=== PATIENT | female | born 1945 | race Hispanic/Latino ===

== ENCOUNTER 2024-11-11 19:18 | Emergency (ER) | payer SELFPAY ==
[~2024-11-11] VITALS: Ht 165.1 cm; Wt 68.0 kg
[2024-11-11] MEDS: ONDANSETRON HCL 4 MG ORAL DISINTEGRATING TAB PO ONE (22:43)
[2024-11-11] MEDS: HYDROCODONE/APAP 7.5MG-325MG 1 EA TAB PO ONE (22:43)
[2024-11-11] MEDS ORDERED: HYDROCODON-ACE1 EA12 PEG (23:04)
[2024-11-11] MEDS ORDERED: ONDANSETRON ODT4 MG SL (23:04)
[2024-11-11] MEDS ORDERED: HYDROCODON-ACE1 EA12 PO (23:26)
[2024-11-11 23:35] VITALS: PULSE 86; RESP 17; TEMP 98.2; O2SAT 100
== END 2024-11-11 23:48 | disposition home or self-care (01) ==
LOC: ER 22:09
DX: S42.212A Unspecified displaced fracture of surgical neck of left humerus, initial encounter for closed fracture (principal); W18.39XA Other fall on same level, initial encounter; Y92.89 Other specified places as the place of occurrence of the external cause; I10 Essential (primary) hypertension; E11.9 Type 2 diabetes mellitus without complications; E78.5 Hyperlipidemia, unspecified
CPT/HCPCS: 29240; 70450; 72125; 73030; 73060; 73090; 99284; Q0162